=== PATIENT | male | born 1990 ===

== ENCOUNTER 2018-06-18 18:12 | Emergency (ER) | payer OTHER ==
[~2018-06-18] VITALS: Ht 152.4 cm; Wt 81.6 kg
== END 2018-06-18 19:21 | disposition home or self-care (01) ==
LOC: ER 18:12
DX: S01.111A Laceration without foreign body of right eyelid and periocular area, initial encounter (principal); W45.8XXA Other foreign body or object entering through skin, initial encounter; Y93.89 Activity, other specified; Y92.89 Other specified places as the place of occurrence of the external cause; Y99.8 Other external cause status